=== PATIENT | male | born 1990 | race African-American/Black ===

== ENCOUNTER 2022-12-07 20:38 | Emergency (ER) | payer OTHER ==
[2022-12-07] MEDS ORDERED: Acetaminophen 325 MG TAB ONE (21:21)
[2022-12-07] MEDS ORDERED: Aspirin Chewable 81 MG TAB ONE (21:21)
[2022-12-07] MEDS ORDERED: Sodium Chloride 0.9% 1,000 ML ONE (21:21)
[2022-12-07] MEDS ORDERED: Acetaminophen 500 MG TAB ONE (21:23)
[2022-12-07 21:49] LABS: Hematocrit 46.6 % (42.0-52.0); Hemoglobin 15.4 g/dL (14.0-18.0); Lymphocytes 28 % (21-51); MDiff Complete? YES; Mean Corpuscular Hemoglobin 29.2 pg (27.0-31.0); Mean Corpuscular Volume 88.4 fl (78.0-98.0); Mean Platelet Volume 9.4 fL (7.4-10.4); Monocytes 8 % (0-10); Neutrophil 64 % (42-75); Platelet Count 202 10x3/uL (130-400); RBC Distribution Width 11.7 % (11.5-14.5); Red Blood Cell (RBC) Count 5.27 mill/uL (4.70-6.10); White Blood Cell (WBC) Count 5.8 10x3/uL (4.8-10.8)
[2022-12-07 22:05] LABS: ALT (SGPT) 25 U/L (8-55); AST (SGOT) 18 U/L (5-34); Albumin 4.5 g/dL (3.5-5.0); Alkaline Phosphatase 72 U/L (40-110); Anion Gap 15 mmol/L (10-20); BUN (Urea Nitrogen) 15 mg/dL (8.9-20.6); Bilirubin, Total 1.4 mg/dL (0.2-1.2); Calc. Creatinine Clearance 0 mL/min (70-130); Carbon Dioxide 24 mmol/L (22-29); Chloride 104 mmol/L (98-107); Estimated GFR 96; Globulin 3.6 g/dL (2.4-3.5); Glucose 93 mg/dL (70-105); Lipase 13 U/L (8-78); Potassium 4.4 mmol/L (3.5-5.1); Protein, Total 8.1 g/dL (6.0-8.3); Sodium 139 mmol/L (136-145); Troponin I Less than 0.010 ng/mL (< 0.028)
[2022-12-07] MEDS ORDERED: Ketorolac Tromethamine 30 MG/ML VIAL ONE (22:58)
[2022-12-07] MEDS ORDERED: Lisinopril 10 MG TAB ONE (22:58)
[2022-12-07 23:42] LABS: Bilirubin Small (Negative); Blood, Urine Negative (Negative); CAUTI Indications for Culture Pelvic or flank pain; Clarity Clear (Clear); Glucose, Urine (Dipstick) Negative (Negative); Ketone, Urine 40 mg/dL (Negative); Leukocyte Negative (Negative); Nitrite Negative (Negative); Protein, Urine (Dipstick) Trace mg/dL (Neg-Trace); RBC/HPF None Seen HPF (0-3); Specific Gravity, Urine 1.025 (1.005-1.030); Squamous Epithelial 0-3 HPF (0-3); WBC/HPF None Seen HPF (0-3); pH, Urine 5.5 (5.0-9.0)
[2022-12-07 23:43] LABS: Urine Culture Reflex No No
[2022-12-07 23:44] LABS: Amphetamine Detected (NotDetected); Barbiturates Screen Not Detected (NotDetected); Benzodiazepine Screen Not Detected (NotDetected); Cocaine Metabolite Screen Not Detected (NotDetected); Methadone Not Detected (NotDetected); Methamphetamine Detected (NotDetected); Opiate Screen Not Detected (NotDetected); Oxycodone Screen Not Detected (NotDetected); Phencyclidine (PCP) Not Detected (NotDetected); THC/Cannabinoid Screen Not Detected (NotDetected); Tricyclic Screen Not Detected (NotDetected)
== END 2022-12-07 23:37 ==
LOC: MADERS 20:38 → EEVIPCON 20:38 → MADERS 23:37
DX: F41.1 Generalized anxiety disorder (principal); M94.0 Chondrocostal junction syndrome [Tietze]; I10 Essential (primary) hypertension
CPT/HCPCS: 71045; 80053; 80306; 81001; 83690; 84484; 85025; 93005; 96374; J1885; J7050